=== PATIENT | male | born 1985 ===

== ENCOUNTER 2020-05-27 20:16 | Outpatient (REF) | payer MEDICAID, SELFPAY ==
[2020-05-27 21:07] LABS: Abs Immature Grans 0.01 10^3/uL (0.0-0.06); Absolute Basophil Count 0.05 10^3/uL (0.0-0.2); Absolute Eosinophil Count 0.39 10^3/uL (0.0-0.7); Absolute Lymphocyte Count 1.95 10^3/uL (1.2-3.4); Absolute Monocyte Count 0.51 10^3/uL (0.1-0.8); Basophils % 0.8; Eosinophils % 6.2; HCT 45.2 % (40.0-50.0); HGB 15.9 g/dL (13.5-17.5); Immature Grans % 0.2; Lymphocytes % 30.9; MCH 30.1 pg (27.0-33.0); MCHC 35.2 % (32.0-36.0); MCV 85.6 fL (80-95); MPV 11.1 fL (8.0-11.0); Monocytes % 8.1; Neutrophils % 53.8; Nucleated RBC 0 %; Platelet Count 257 10^3/uL (130-400); RBC 5.28 10^6/uL (4.36-5.78); RDW 12.3 % (11.8-14.1); RDW-SD 38.2 fL; WBC 6.31 10^3/uL (4.4-10.8)
[2020-05-27 21:41] LABS: ALT 22 U/L (16-63); AST 14 U/L (15-37); Albumin 4.3 g/dL (3.4-5.0); Alkaline Phosphatase 101 U/L (46-116); BUN 14 mg/dL (7-18); Bilirubin, Total 2.1 mg/dL (0.2-1.0); CREATININE 1.08 mg/dL (0.70-1.30); Calcium 8.9 mg/dL (8.5-10.1); Calculated LDL 85 mg/dL (<100); Chloride 102 mmol/L (98-107); Cholesterol 134 mg/dL (<200); Glucose 74 mg/dL (74-106); HDL Cholesterol 35 mg/dL (40-60); Potassium 4.6 mmol/L (3.5-5.1); Sodium 139 mmol/L (136-145); TSH (W/Ref FT4) 1.34 uIU/mL (0.36-3.74); Total Protein 6.9 g/dL (6.4-8.2); Triglyceride 74 mg/dL (<150); Vitamin B12 710 pg/mL (193-986)
[2020-05-29 05:03] LABS: Vitamin D 25 Total 27.8 ng/ml (30-100)
== END 2020-05-27 20:36 ==
LOC: NCHCN 20:16
PROVIDERS: PCP Nurse Practitioner Family; Visit Provider Nurse Practitioner Family
DX: F32.9 Major depressive disorder, single episode, unspecified (principal); Z13.220 Encounter for screening for lipoid disorders; Z13.21 Encounter for screening for nutritional disorder
CPT/HCPCS: 80053; 80061; 82306; 82607; 84443; 85025

== ENCOUNTER 2022-05-04 21:00 | Outpatient (REF) | payer MEDICAID, SELFPAY ==
[2022-05-04 21:17] LABS: Abs Immature Grans 0.02 10^3/uL (0.0-0.06); Absolute Basophil Count 0.06 10^3/uL (0.0-0.2); Absolute Eosinophil Count 0.13 10^3/uL (0.0-0.7); Absolute Lymphocyte Count 1.02 10^3/uL (1.2-3.4); Absolute Monocyte Count 0.62 10^3/uL (0.1-0.8); Absolute Neutrophil Count 5.02 10^3/uL (1.2-6.7); Basophils % 0.9; Eosinophils % 1.9; HCT 48.2 % (40.0-50.0); HGB 16.5 g/dL (13.5-17.5); Immature Grans % 0.3; Lymphocytes % 14.8; MCH 29.9 pg (27.0-33.0); MCHC 34.2 % (32.0-36.0); MCV 87 fL (80-95); MPV 10.8 fL (8.0-11.0); Neutrophils % 73.1; Platelet Count 265 10^3/uL (130-400); RBC 5.52 10^6/uL (4.36-5.78); RDW 12.2 % (11.8-14.1); RDW-SD 39.1 fL; WBC 6.87 10^3/uL (4.4-10.8)
[2022-05-04 21:40] LABS: ALT 22 U/L (16-63); AST 15 U/L (15-37); Albumin 4.3 g/dL (3.4-5.0); Alkaline Phosphatase 91 U/L (46-116); Anion Gap 6.7 mmol/L (3-11); BUN 12 mg/dL (7-18); Bilirubin, Total 1.3 mg/dL (0.2-1.0); CO2 29.3 mmol/L (21.0-32.0); Calcium 8.7 mg/dL (8.5-10.1); Chloride 102 mmol/L (98-107); Estimated GFR 101.28 (mL/min/1.73m2); Glucose 82 mg/dL (74-106); Potassium 3.8 mmol/L (3.5-5.1); Sodium 138 mmol/L (136-145); Total Protein 7.4 g/dL (6.4-8.2)
[2022-05-04 22:36] LABS: Vitamin D 25 Total 20.8 ng/mL (30-100)
[2022-05-06 10:07] LABS: Syphilis Serology (RPR) Negative (Negative)
[2022-05-06 10:31] LABS: HIV-1/2 Ag & Ab Screen Negative (Negative)
[2022-05-06 15:25] LABS: HBs Antibody, Quant 143.4 mIU/mL (See Note); Hepatitis B Surface Ab Positive (See Note)
[2022-05-06 16:10] LABS: Hepatitis C Ab w Rflx HCV PCR Negative (Negative)
== END 2022-05-04 21:01 | disposition home or self-care (01) ==
LOC: NCHCN 21:00
PROVIDERS: PCP Nurse Practitioner Family; Visit Provider Nurse Practitioner Family
DX: E55.9 Vitamin D deficiency, unspecified (principal); Z11.59 Encounter for screening for other viral diseases; Z11.4 Encounter for screening for human immunodeficiency virus [HIV]; Z11.3 Encounter for screening for infections with a predominantly sexual mode of transmission; Z00.00 Encounter for general adult medical examination without abnormal findings
CPT/HCPCS: 80053; 82306; 86706; 86803; 87389; 85025; 86592

== ENCOUNTER 2024-10-18 21:47 | Outpatient (REF) | payer MEDICAID, SELFPAY ==
[2024-10-18 21:30] LABS: Abs Immature Grans 0.01 10^3/uL (0.0-0.06); Absolute Basophil Count 0.05 10^3/uL (0.0-0.2); Absolute Eosinophil Count 0.25 10^3/uL (0.0-0.7); Absolute Lymphocyte Count 1.26 10^3/uL (1.2-3.4); Absolute Neutrophil Count 2.56 10^3/uL (1.2-6.7); Basophils % 1.1 %; Eosinophils % 5.6 %; HGB 16.7 g/dL (13.5-17.5); Immature Grans % 0.2 %; Lymphocytes % 28.4 %; MCH 30.9 pg (27.0-33.0); MCHC 34.8 % (32.0-36.0); MCV 89 fL (80-95); MPV 10.7 fL (8.0-11.0); Monocytes % 6.8 %; Neutrophils % 57.9 %; Platelet Count 231 10^3/uL (130-400); RDW 12.2 % (11.8-14.1); RDW-SD 39.7 fL; WBC 4.43 10^3/uL (4.4-10.8)
[2024-10-18 21:50] LABS: Hemoglobin A1C 4.9 % (<5.7)
[2024-10-18 22:02] LABS: ALT 25 U/L (16-63); AST 23 U/L (15-37); Albumin 4.1 g/dL (3.4-5.0); Alkaline Phosphatase 121 U/L (46-116); Anion Gap 2.8 mmol/L (3-11); BUN 8 mg/dL (7-18); Bilirubin, Total 1.2 mg/dL (0.2-1.0); CO2 32.2 mmol/L (21.0-32.0); Calcium 8.8 mg/dL (8.5-10.1); Chloride 105 mmol/L (98-107); Estimated GFR 99.41 (mL/min/1.73m2); Glucose 100 mg/dL (74-106); Potassium 4.8 mmol/L (3.5-5.1); Sodium 140 mmol/L (136-145); TSH 1.14 uIU/mL (0.36-3.74); Vitamin D 25 Total 19 ng/mL (30-100)
[2024-10-19 17:48] LABS: Unconjugated(Indirect) Bili 0.9 mg/dL (<=1.1)
== END 2024-10-18 21:48 | disposition home or self-care (01) ==
LOC: NCHCN 21:47
PROVIDERS: PCP Nurse Practitioner Family; Visit Provider Family Medicine
DX: K52.9 Noninfective gastroenteritis and colitis, unspecified (principal); Z13.1 Encounter for screening for diabetes mellitus; R63.4 Abnormal weight loss; E55.9 Vitamin D deficiency, unspecified; R17 Unspecified jaundice
CPT/HCPCS: 80053; 82248; 82306; 83036; 84443; 85025